=== PATIENT | male | born 1965 | race Caucasian/White ===

== ENCOUNTER 2017-09-03 14:38 | Emergency (ER) | payer BC ==
[2017-09-03 14:52] VITALS: BP 144/82
--- NOTE | 2017-09-03 15:16 | ED ---
Abdominal Pain/Male - HPI Summary HPI Summary: 52 yr old male with lower abdominal pain, 6/10, worse with walking and moving and with BM. He had onset of the pain last week and it has gotten progressively worse, most notably the past day. No he is having loose stools and worsening pain with movement, walking. He denies fever.But he has had chills. - History of Current Complaint Chief Complaint: UCGI Stated Complaint: SEVERE LOWER ABDOMINAL PAIN Time Seen by Provider: 09/03/17 14:56 - Allergies/Home Medications Allergies/Adverse Reactions: Allergies Allergy/AdvReac Type Severity Reaction Status Date / Time Food Allergy Unknown See Comment Verified 09/22/15 12:29 Penicillins Allergy Rash Verified 09/22/15 12:29 gluten Allergy Abdominal Uncoded 09/03/17 14:52 Pain hay Allergy Rash Uncoded 06/07/16 21:12 PMH/Surg Hx/FS Hx/Imm Hx Endocrine/Hematology History: Denies: Hx Diabetes Cardiovascular History: Denies: Hx Hypertension, Hx Pacemaker/ICD Sensory History: Denies: Hx Hearing Aid Psychiatric History: Denies: Hx Panic Disorder Infectious Disease History: No Infectious Disease History: Denies: Traveled Outside the [place] in Last 30 Days - Family History Known Family History: Positive: Other - lung cancer Negative: Diabetes, Blood Disorder - Social History Occupation: Employed Full-time Alcohol Use: Daily Alcohol Amount: 2 Substance Use Type: Reports: None Smoking Status (MU): Never Smoked Tobacco Review of Systems Constitutional: Negative Eyes: Negative Respiratory: Negative Positive: Abdominal Pain, Diarrhea All Other Systems Reviewed And Are Negative: Yes Physical Exam Triage Information Reviewed: Yes Vital Signs On Initial Exam: Initial Vitals Temp Pulse BP 99.1 F 86 144/82 09/03/17 14:44 09/03/17 14:44 09/03/17 14:44 Vital Signs Reviewed: Yes Appearance: Positive: Pain Distress - mild Skin: Positive: Warm, Skin Color Reflects Adequate Perfusion ENT: Positive: Normal ENT inspection Respiratory/Lung Sounds: Positive: Clear to Auscultation, Breath Sounds Present Cardiovascular: Positive: RRR. Negative: Murmur Abdomen Description: Positive: Other: - tender lower abdomen left and right side Neurological: Positive: Sensory/Motor Intact, Alert, Oriented to Person Place, Time, CN Intact II-III Psychiatric: Positive: Normal Diagnostics - Vital Signs Vital Signs Temp Pulse BP 09/03/17 14:44 99.1 F 86 144/82 - Laboratory Lab Statement: Any lab studies that have been ordered have been reviewed, and results considered in the medical decision making process. Abdominal Pain Fem Course/Dx - Course Course Of Treatment: 52 yr old with abdominal tenderness, chills, and worse with walking. Recommend transfer to ER for further work up by ambulance. He drove himself and with pain not a safe discharge to drive self. Also potential delay in care. he signed out AMA. - Diagnoses Provider Diagnoses: Lower abdominal pain, unspecified Discharge - Discharge Plan Condition: Good Disposition: HOME Referrals: Charan Guzman MD [Primary Care Provider] -
== END 2017-09-03 15:14 | disposition home or self-care (01) ==
LOC: UCCORT 14:38
DX: R10.30 Lower abdominal pain, unspecified (principal); Z88.0 Allergy status to penicillin
CPT/HCPCS: 99212; G0463